=== PATIENT | female | born 1970 | race American Indian/Alaskan Native ===

== ENCOUNTER 2016-09-07 09:54 | Emergency (ER) | payer SELFPAY ==
--- NOTE | 2016-09-07 10:40 | Emergency Department Report ---
HPI - General Chief Complaint: Sore Throat Time Seen by Provider: 09/07/16 10:39 - HPI HPI: Patient here complaining of sore throat and earache for 2 days. Denies any coughing or shortness of breath. Denies any chest pain. She reports nasal congestion and runny nose. Left ear pain is 7 out of 10. Pain is 8 out of 10. Pain is achy and worse with swallowing. She denies any fever or chills. Denies any nausea vomiting. Denies any drooling. Patient uses over-the- counter cough and cold medication with minimal relief. ED Past Medical Hx - Past Medical History Previous Medical History?: No - Surgical History Past Surgical History?: Yes Additional Surgical History: Hysterectomy - Family History Family history: no significant - Social History Smoking Status: Never Smoker Substance Use Type: Alcohol, Non Opiate Pain, Other - Medications Home Medications: Home Medications Medication Instructions Recorded Confirmed Last Taken Type Fluticasone [Flonase] 1 spray NS QDAY #1 bottle 09/07/16 Unknown Rx Loratadine [Claritin] 10 mg PO DAILY #20 tablet 09/07/16 Unknown Rx predniSONE [Deltasone] 50 mg PO QDAY #5 tab 09/07/16 Unknown Rx ED Review of Systems ROS: Stated complaint: THROAT/EAR PAIN Other details as noted in HPI Comment: All other systems reviewed and negative Constitutional: denies: chills, fever ENT: ear pain, throat pain, congestion. denies: dental pain Respiratory: no symptoms reported Cardiovascular: denies: chest pain, palpitations, edema, syncope Gastrointestinal: denies: nausea, vomiting Musculoskeletal: denies: back pain, arthralgia Skin: denies: rash Neurological: denies: headache Physical Exam - Physical Exam Vital Signs: Vital Signs 09/07/16 10:30 Temperature 98.8 F Pulse Rate 96 H Respiratory 20 Rate Blood Pressure 141/92 O2 Sat by Pulse 100 Oximetry General: This is a 46-year-old female well-nourished well-developed in no acute distress. Physical Exam: Head: Normocephalic atraumatic Mouth: Moist, no pharyngeal exudate or erythema. Uvula is midline and oral airway is patent. No gingival enlargement or dental tenderness. No facial swelling. No peritonsillar abscesses. Neck: Supple, no C-spine tenderness, no tracheal deviation. Nontender to palpate. no adenopathy Ears: Bilateral TMs congested without erythema .bilateral EAC without any redness swelling or drainage Eyes: Bilateral pupils equal and reactive to light, bilateral EOM intact. Bilateral sclera and conjunctiva without injection. Normal accommodation Nose: Mucosa moist, positive congestion with erythema. Positive clear drainage. maxillary and frontal sinus non-tender to palpate. Lungs: clear to auscultate bilaterally no rhonchi wheezes or rales. Normal work of breathing extremity; No CCE. +2 pulses. No neurovascular compromise Cardiovascular: S1-S2, regular rate rhythm. No murmurs. Skin: clean Dry and intact no rash no lesions Psych: Normal mood and behavior ED Course Vital Signs 09/07/16 10:30 Temperature 98.8 F Pulse Rate 96 H Respiratory 20 Rate Blood Pressure 141/92 O2 Sat by Pulse 100 Oximetry - Reevaluation(s) Reevaluation #1: 09/07/16 11:41 ED course uneventful ED Medical Decision Making - Medical Decision Making ED Course: I discussed with patient that based on my physical findings she has sinus inflammation with is usually viral in nature. I discussed with her that I 'll put her on antibiotic, steroids and nasal Flonase and that she should take [id number] Claritin. Patient was understanding of discharge instructions and discharged home to follow up with her primary care physician in 5 days. Critical care attestation.: If time is entered above; I have spent that time in minutes in the direct care of this critically ill patient, excluding procedure time. ED Disposition Clinical Impression: Otalgia of left ear Acute inflammation of sinus Qualifiers: Sinusitis location: unspecified location Recurrence: not specified as recurrent Qualified Code(s): J01.90 - Acute sinusitis, unspecified Acute pharyngitis Qualifiers: Pharyngitis/tonsillitis etiology: unspecified etiology Qualified Code(s): J02.9 - Acute pharyngitis, unspecified Disposition: DISCHARGED TO HOME OR SELFCARE Is pt being admited?: No Does the pt Need Aspirin: No Condition: Stable Instructions: Pharyngitis (ED), Sinusitis (ED), Earache (ED) Additional Instructions: Please flush sinusitis nasal membranes. Gargle with warm salt water Prescriptions: Fluticasone [Flonase] 1 spray NS QDAY #1 bottle Loratadine [Claritin] 10 mg PO DAILY #20 tablet predniSONE [Deltasone] 50 mg PO QDAY #5 tab Referrals: PRIMARY CARE, [Primary Care Provider] - 09/12/16 [facility] [Outside] - 09/12/16 Forms: Work/School Release Form(ED)
[2016-09-07 12:18] VITALS: BP 116/81
== END 2016-09-07 12:18 | disposition home or self-care (01) ==
LOC: ED 09:54
DX: J01.90 Acute sinusitis, unspecified (principal); J02.9 Acute pharyngitis, unspecified; H92.02 Otalgia, left ear
CPT/HCPCS: 99282